=== PATIENT | male | born 1945 | race Caucasian/White ===

== ENCOUNTER → 2019-04-16 | Outpatient (CLI) | payer MEDICARE, BC ==
[~2019-04-16] MED LIST: ASPI325; BIMA.03OPS; BRIM.15SO; METO50ER
[2019-04-17 13:44] LABS: Stool Occult Bld Immuno 1 Negative (NEGATIVE)
== END | disposition home or self-care (01) ==
LOC: LAB 14:05 → LAB SHORT 14:05
PROVIDERS: Nurse Practitioner Family
DX: Z12.11 Encounter for screening for malignant neoplasm of colon (principal)
CPT/HCPCS: G0328

== ENCOUNTER → 2020-03-03 | Outpatient (CLI) | payer MEDICARE ==
[2020-03-03 17:34] LABS: Bilirubin, Urine Neg (Neg); Blood, Urine Neg (Neg); Glucose Qualitative, Urine Neg (Neg); Ketones, Urine Neg (Neg); Leukocyte Esterase, Urine Neg (Neg); Nitrite, Urine Neg (Neg); Protein, Urine Neg (Neg); Urobilinogen, Urine NORM (Normal)
[2020-03-03 17:39] LABS: Appearance, Urine Clear (Clear); Color, Urine Pale Yellow (P-Yellow)
[2020-03-03 18:31] LABS: Protein, Urine Random 7.6 mg/dL (0.0-11.9)
[2020-03-03 18:33] LABS: Creatinine, Urine Random 41.2 mg/dL (27.00-270.00)
== END | disposition home or self-care (01) ==
LOC: LAB 15:58 → LAB SHORT 15:58
PROVIDERS: Internal Medicine
DX: N18.3 Chronic kidney disease, stage 3 (moderate) (principal)
CPT/HCPCS: 81003; 82570; 84156

== ENCOUNTER 2022-01-31 06:43 | Day surgery (SDC) | payer MEDICARE, BC ==
[~2022-01-31] VITALS: Ht 165.1 cm; Wt 66.0 kg
[~2022-01-31 06:43] MED LIST changes: +ACET500 PO; +ALBU90OI INH; +ALLO100 PO; +HYDROCHLOROTH12.5 MG PO; +LUMIGAN2.5 ML BOTHEYES; +METF500C PO; +METOPROLOL SUCC25 MG PO; +MONTELUKAST SOD10 M1 PO; +Prinivil10 MG PO; +ZYRTEC10 M2 PO
== END 2022-01-31 09:00 | disposition home or self-care (01) ==
LOC: ORSCSDS 06:43
PROVIDERS: Internal Medicine Gastroenterology
PROC: 0DBL8ZX Excision of Transverse Colon, Via Natural or Artificial Opening Endoscopic, Diagnostic (ICD-10-PCS; principal; 2022-01-31 08:00)
PROC: 0DBP8ZX Excision of Rectum, Via Natural or Artificial Opening Endoscopic, Diagnostic (ICD-10-PCS; principal; 2022-01-31 08:00)
PROC: 0DBK8ZX Excision of Ascending Colon, Via Natural or Artificial Opening Endoscopic, Diagnostic (ICD-10-PCS; principal; 2022-01-31 08:00)
DX: Z12.11 Encounter for screening for malignant neoplasm of colon (principal); D12.2 Benign neoplasm of ascending colon; K62.1 Rectal polyp; K64.8 Other hemorrhoids; N18.30 Chronic kidney disease, stage 3 unspecified; Z79.899 Other long term (current) drug therapy; Z79.84 Long term (current) use of oral hypoglycemic drugs; F17.290 Nicotine dependence, other tobacco product, uncomplicated
CPT/HCPCS: 82947; 88305; J2704; J7120